=== PATIENT | male | born 1990 | race Hispanic/Latino ===

== ENCOUNTER → 2023-09-13 | Outpatient (CLI) | payer OTHER | END | disposition home or self-care (01) | LOC: RAH 12:17 | PROVIDERS: ATTEND Family Medicine | DX: M25.511 Pain in right shoulder (principal); R20.2 Paresthesia of skin | CPT/HCPCS: 73030 ==

== ENCOUNTER → 2023-10-05 | Outpatient (CLI) | payer OTHER | END | disposition home or self-care (01) | LOC: RAH 13:49 | PROVIDERS: ATTEND Family Medicine | DX: G25.3 Myoclonus (principal); R68.89 Other general symptoms and signs; Z87.828 Personal history of other (healed) physical injury and trauma | CPT/HCPCS: 70450 ==